=== PATIENT | male | born 1970 | race Caucasian/White ===

== ENCOUNTER 2019-04-04 10:57 | Emergency (ER) | payer OTHER ==
[2019-04-04 11:49] VITALS: BP 126/85
--- NOTE | 2019-04-16 21:52 | UC ---
Skin Complaint HPI - HPI Summary HPI Summary: 48 year old male with no PMH presents with dx'd of shingles ~ 1 week ago at [facility]. had lesions for 3 days prior, was not given any medication. Since lesions have increased, spread to base of scalp. Denies eye involvement. no pain, no headache. Denies pain. no difficulty with arm movements. no other complaints. - History of Current Complaint Chief Complaint: UCSkin Time Seen by Provider: 04/04/19 12:30 Stated Complaint: SKIN COMPLAINT Hx Obtained From: Patient Onset/Duration: Sudden Onset, Lasting Days - ~10 days Skin Exposure Onset/Duration: Days Ago Onset Severity: Mild Current Severity: None Pain Intensity: 1 Pain Scale Used: 0-10 Numeric Location: Discrete - right shoulder, neck. Aggravating Factor(s): Touch Associated Signs & Symptoms: Positive: Drainage, Red Streaks - Allergy/Home Medications Allergies/Adverse Reactions: Allergies Allergy/AdvReac Type Severity Reaction Status Date / Time No Known Allergies Allergy Verified 04/04/19 11:48 Home Medications: Home Medications FLUoxetine CAP* [Prozac CAP*] 40 mg PO DAILY 04/04/19 [History Confirmed ] Valacyclovir HCl [Valtrex] 1,000 mg PO Q8H #30 tablet 04/04/19 [Rx] PMH/Surg Hx/FS Hx/Imm Hx Previously Healthy: Yes - Surgical History Surgical History: Yes Surgery Procedure, Year, and Place: 2009 - ACL repair. wisdom teeth - Family History Known Family History: Positive: Non-Contributory - Social History Occupation: Employed Full-time - [employer] Alcohol Use: Weekly Substance Use Type: None Smoking Status (MU): Never Smoked Tobacco Review of Systems All Other Systems Reviewed And Are Negative: Yes Constitutional: Positive: Negative Skin: Positive: Rash, Other - draining wounds Motor: Positive: Negative Musculoskeletal: Positive: Negative Neurological/Mental Status: Positive: Negative Psychological: Positive: Negative Is Patient Immunocompromised?: No Physical Exam Triage Information Reviewed: Yes Appearance: Well-Appearing, No Pain Distress, Well-Nourished Vital Signs: Initial Vital Signs Temp 97.4 F 04/04/19 11:44 Pulse 80 04/04/19 11:44 Resp 16 04/04/19 11:44 BP 126/85 04/04/19 11:44 Pulse Ox 98 04/04/19 11:44 Vital Signs Reviewed: Yes Eyes: Positive: Conjunctiva Clear ENT: Positive: Pharynx normal, TMs normal, Uvula midline. Negative: TM bulging , TM dull, TM red, Tonsillar swelling, Tonsillar exudate, Sinus tenderness Dental Exam: Normal Neck: Positive: Supple, Nontender, No Lymphadenopathy. Negative: Nuchal Rigidity, Enlarged Nodes @ Respiratory: Positive: Chest non-tender, Lungs clear, Normal breath sounds, No respiratory distress, No accessory muscle use. Negative: Crackles, Rhonchi, Stridor, Wheezing Musculoskeletal: Positive: Strength Intact - right shoulder full ROM without pain, full cervical ROM Neurological Exam: Normal Neurological: Positive: Alert Psychological Exam: Normal Skin: Positive: Other - grouped vesiclar lesions on a erythematous base extending from cervical spine over to right upper arm, neck, base of ear, clavicle area. mild clear drainage over some lesions, others with roof, others crusting. Course/Dx - Course Course Of Treatment: - Valacyclovir 1000mg three times a day for 10 days to help decrease symptoms and prevent termite treater helper effects - Keep areas covered after blisters burst, avoid contact with immunocompromised patients, women. - Diagnoses Provider Diagnosis: Shingles Discharge ED - Sign-Out/Discharge Documenting (check all that apply): Patient Departure All imaging exams completed and their final reports reviewed: No Studies - Discharge Plan Condition: Good Disposition: HOME Prescriptions: Valacyclovir HCl [Valtrex] 1,000 mg PO Q8H #30 tablet Patient Education Materials: Shingles (ED) Referrals: Eric Lopez MD [Primary Care Provider] - Additional Instructions: - Valacyclovir 1000mg three times a day for 10 days to help decrease symptoms and prevent termite treater helper effects - Keep areas covered after blisters burst, avoid contact with immunocompromised patients, women. What is shingles?Shingles is a painful rash that is usually shaped like a band. It can affect people of all ages, but it is most common in those older than 50. Another name for shingles is "herpes zoster." Shingles is caused by a virus called varicella-zoster virus. This is the same virus that causes chickenpox. After someone has chickenpox, the virus sometimes hides out, "asleep" in the body. Years later, it can "wake up" and cause shingles. The first time a person is infected with that virus, he or she gets chickenpox, not shingles. Is shingles contagious?In a way, yes. It is not possible to "catch" shingles from someone who has the rash. But if you have never had chickenpox or gotten the chickenpox vaccine, it is possible to "catch" the virus and then get sick with chickenpox. Shingles and chickenpox are caused by the same virus. You probably will not catch the virus (or get chickenpox) if you: -Had chickenpox or shingles in the past -Had the chickenpox vaccine -Were born in the [place] before 1979 (most people born before 1979 have had chickenpox even if they don't remember it) If you have never had chickenpox or the chickenpox vaccine, you should avoid contact with anyone who has shingles. It is especially important that you do not touch their rash. If you do, you could get sick with chickenpox. In rare cases, it is possible to get chickenpox from just being near someone with shingles. What are the symptoms of shingles?At first, shingles causes weird sensations on your skin. You might feel itching, burning, pain, or tingling. Some people get a fever, feel sick, or get a headache. Within 1 to 2 days, a rash with blisters appears. Blisters most often appear in a band across the chest and back. They can show up on other parts of the body, too. The blisters cause pain that can be mild or severe. Within 3 to 4 days, shingles blisters can become open sores or "ulcers." These ulcers can sometimes get infected. Within 7 to 10 days, the rash should scab over and start to heal. Can shingles be serious?Yes. Shingles can be serious, but this is rare. About 1 out of 10 people with shingles will get something called "postherpetic neuralgia ," or "PHN." People with PHN keep feeling pain or discomfort even after their rash goes away. This pain can last for months or even years. It can be so bad that it makes it hard to sleep, causes weight loss, and leads to depression. Shingles can also cause: -Skin infections -Eye problems (if the rash is near the eye) -Ear problems (if the rash is near the ear) In rare cases, shingles can cause serious problems with the brain or nerves. But this is very uncommon. Should I see a doctor or nurse?Yes. If you have a rash that you think might be shingles, call your doctor or nurse right away. They will do an exam and might recommend treatment. How is shingles treated?It depends on how long you have had the shingles rash: -If you have had the rash for less than 3 days, your doctor will prescribe a medicine to help you get rid of the virus. These medicines are called "antivirals." They can speed your recovery and reduce the chances that you will have shingles-related problems such as PHN. -If you have had the rash for more than 3 days, your doctor might or might not prescribe medicine. Antiviral medicine might help if new blisters are still appearing, or if your immune system (the body's infection-fighting system) is weaker than normal. Can the pain be treated?Some people can deal with their pain with non- prescription pain medicines, but many people need prescription medicines. How should I take care of the rash?Keep the parts of your skin that have a rash clean and dry. Do not use creams or gels unless your doctor or nurse says you should. Can shingles be prevented?People can reduce their chances of getting shingles by getting the shingles vaccine. The vaccine can also make the symptoms of shingles milder if they do occur. There are 2 vaccines that are available for adults over 50 years. Your doctor can tell you if you should get a shingles vaccine, and which one is best for you. - Billing Disposition and Condition Condition: GOOD Disposition: Home
== END 2019-04-04 12:53 | disposition home or self-care (01) ==
LOC: UCEAST 10:57
DX: B02.9 Zoster without complications (principal)
CPT/HCPCS: 99202; G0463